=== PATIENT | female | born 1955 | race Hispanic/Latino ===

== ENCOUNTER → 2018-08-14 | Outpatient (CLI) | payer OTHER ==
[~2018-08-14] MED LIST: CARVEDILOL PO; LIPITOR PO; METFORMIN PO
--- NOTE | 2018-08-14 09:30 | Diagnostic Imaging Report ---
EXAM: Renal Ultrasound INDICATION: Recurrent UTI COMPARISON: None TECHNIQUE: Transverse and longitudinal images of the kidneys and bladder were obtained. FINDINGS: Right Kidney: Length: Measures 10.0 x 4.1 x 4.7 cm Appearance: Normal echogenicity. Collecting system: No hydronephrosis Stones: None Cyst/Mass: None Left Kidney: Length: Measures 10.9 x 4.5 x 4.5 cm Appearance: Normal echogenicity. Collecting system: No hydronephrosis There is a 4 mm hyperechoic focus seen within the left mid pole renal cortex. There is no associated shadowing. Bladder: Unremarkable in appearance. Bilateral ureteral jets are seen. IMPRESSION: Possible 4 mm left mid pole renal stone. No evidence of hydronephrosis. Signed by: Dr. Lorna Anderson MD on 08/14/2018 9:27 AM
== END ==
LOC: US 07:51
PROVIDERS: ATTEND Urology
DX: N39.0 Urinary tract infection, site not specified (principal)
CPT/HCPCS: 76770

== ENCOUNTER → 2018-09-03 | Outpatient (CLI) | payer OTHER ==
--- NOTE | 2018-09-03 11:50 | Diagnostic Imaging Report ---
EXAM: CT Abdomen and Pelvis WITHOUT contrast INDICATION: Kidney stone COMPARISON: Renal ultrasound, 08/14/2018; CT abdomen/pelvis, 10/21/2014 TECHNIQUE: Abdomen and pelvis were scanned utilizing a multidetector helical scanner from the lung base to the pubic symphysis without administration of IV contrast. Absence of intravenous contrast decreases sensitivity for detection of focal lesions and vascular pathology. Coronal and sagittal reformations were obtained. Renal stone protocol performed. Dose modulation, iterative reconstruction, and/or weight based adjustment of the mA/kV was utilized to reduce the radiation dose to as low as reasonably achievable. IV CONTRAST: None. ORAL CONTRAST: None RADIATION DOSE: Total DLP: 730.10 mGy*cm Estimated effective dose: (DLP x 0.015 x size factor) mSv COMPLICATIONS: None FINDINGS: LINES and TUBES: None. LOWER THORAX: Lung bases clear. Heart size normal. HEPATOBILIARY: No focal hepatic lesions. No biliary ductal dilation. GALLBLADDER: No radio-opaque stones or sludge. No wall thickening. SPLEEN: No splenomegaly. PANCREAS: No focal masses or ductal dilatation. ADRENALS: No adrenal nodules KIDNEYS/URETERS: No hydronephrosis. No cystic or solid mass lesions. No stones. GI TRACT: No abnormal distention, wall thickening, or evidence of bowel obstruction. There are diverticula throughout the colon with no CT evidence for acute diverticulitis. The appendix is not specifically visualized. PELVIC ORGANS/BLADDER: Urinary bladder unremarkable. The uterus is not visualized and may be absent or atrophic. LYMPH NODES: No lymphadenopathy. VESSELS: No abdominal aortic aneurysm. PERITONEUM / RETROPERITONEUM: No pneumoperitoneum or ascites. BONES: No acute or suspicious bony lesions. There is degenerative change with disc space narrowing at L4-5 and L5-S1. SOFT TISSUES: Superficial surrounding soft tissue unremarkable. IMPRESSION: 1. No urinary tract calculus or hydronephrosis. 2. Thomas colonic diverticulosis with no CT evidence for acute diverticulitis. Staff: Jeanine Signed by: Dr. Tono Solorzano M.D. on 09/03/2018 11:47 AM
== END ==
LOC: CT 09:42
PROVIDERS: ATTEND Urology
DX: N20.0 Calculus of kidney (principal)
CPT/HCPCS: 74176

== ENCOUNTER → 2019-09-23 | Outpatient (CLI) | payer OTHER ==
[~2019-09-23] MED LIST changes: +LIDOCAINE/PRILOCAINE 2.5-2.5% KIT ONE; +MINERAL OIL/PETROLAT/GLYCERI 6OZ BTL ONE
== END ==
LOC: WCC 13:47
PROVIDERS: ATTEND Podiatrist Foot & Ankle Surgery
DX: E11.622 Type 2 diabetes mellitus with other skin ulcer (principal); E11.69 Type 2 diabetes mellitus with other specified complication; E11.65 Type 2 diabetes mellitus with hyperglycemia; L97.311 Non-pressure chronic ulcer of right ankle limited to breakdown of skin; L97.321 Non-pressure chronic ulcer of left ankle limited to breakdown of skin; I87.2 Venous insufficiency (chronic) (peripheral); R60.9 Edema, unspecified; I10 Essential (primary) hypertension
CPT/HCPCS: 36415; 82948

== ENCOUNTER → 2019-10-10 | Outpatient (CLI) | payer OTHER ==
[~2019-10-10] MED LIST changes: -LIDOCAINE/PRILOCAINE 2.5-2.5% KIT ONE; -MINERAL OIL/PETROLAT/GLYCERI 6OZ BTL ONE
== END ==
LOC: WCC 08:27
PROVIDERS: ATTEND Family Medicine
DX: E11.622 Type 2 diabetes mellitus with other skin ulcer (principal); E11.69 Type 2 diabetes mellitus with other specified complication; E11.65 Type 2 diabetes mellitus with hyperglycemia; L97.321 Non-pressure chronic ulcer of left ankle limited to breakdown of skin; L97.311 Non-pressure chronic ulcer of right ankle limited to breakdown of skin; I87.2 Venous insufficiency (chronic) (peripheral); R60.9 Edema, unspecified; I10 Essential (primary) hypertension

== ENCOUNTER → 2019-10-14 | Outpatient (CLI) | payer OTHER | LOC: WCC 13:35 | PROVIDERS: ATTEND Podiatrist Foot & Ankle Surgery | DX: E11.622 Type 2 diabetes mellitus with other skin ulcer (principal); E11.69 Type 2 diabetes mellitus with other specified complication; E11.65 Type 2 diabetes mellitus with hyperglycemia; L97.321 Non-pressure chronic ulcer of left ankle limited to breakdown of skin; L97.311 Non-pressure chronic ulcer of right ankle limited to breakdown of skin; I87.2 Venous insufficiency (chronic) (peripheral); R60.9 Edema, unspecified; I10 Essential (primary) hypertension ==

== ENCOUNTER → 2019-10-17 | Outpatient (CLI) | payer OTHER ==
[~2019-10-17] MED LIST changes: +LIDOCAINE/PRILOCAINE 2.5-2.5% KIT ONE; +MINERAL OIL/PETROLAT/GLYCERI 2OZ CRM ONE; +MINERAL OIL/PETROLAT/GLYCERI 6OZ BTL ONE
== END ==
LOC: WCC 15:26
PROVIDERS: ATTEND Podiatrist Foot & Ankle Surgery
DX: E11.622 Type 2 diabetes mellitus with other skin ulcer (principal); E11.69 Type 2 diabetes mellitus with other specified complication; E11.65 Type 2 diabetes mellitus with hyperglycemia; L97.321 Non-pressure chronic ulcer of left ankle limited to breakdown of skin; L97.311 Non-pressure chronic ulcer of right ankle limited to breakdown of skin; R60.9 Edema, unspecified; I87.2 Venous insufficiency (chronic) (peripheral); I10 Essential (primary) hypertension
CPT/HCPCS: 36415; 82948

== ENCOUNTER → 2019-10-21 | Outpatient (CLI) | payer OTHER ==
[~2019-10-21] MED LIST changes: -LIDOCAINE/PRILOCAINE 2.5-2.5% KIT ONE; -MINERAL OIL/PETROLAT/GLYCERI 2OZ CRM ONE; -MINERAL OIL/PETROLAT/GLYCERI 6OZ BTL ONE
== END ==
LOC: WCC 15:07
PROVIDERS: ATTEND Podiatrist Foot & Ankle Surgery
DX: E11.622 Type 2 diabetes mellitus with other skin ulcer (principal); E11.69 Type 2 diabetes mellitus with other specified complication; E11.65 Type 2 diabetes mellitus with hyperglycemia; L97.321 Non-pressure chronic ulcer of left ankle limited to breakdown of skin; L97.311 Non-pressure chronic ulcer of right ankle limited to breakdown of skin; R60.9 Edema, unspecified; I87.2 Venous insufficiency (chronic) (peripheral); I10 Essential (primary) hypertension

== ENCOUNTER → 2019-10-24 | Outpatient (CLI) | payer OTHER | LOC: WCC 09:51 | PROVIDERS: ATTEND Podiatrist Foot & Ankle Surgery | DX: E11.622 Type 2 diabetes mellitus with other skin ulcer (principal); E11.69 Type 2 diabetes mellitus with other specified complication; E11.65 Type 2 diabetes mellitus with hyperglycemia; L97.311 Non-pressure chronic ulcer of right ankle limited to breakdown of skin; I87.2 Venous insufficiency (chronic) (peripheral); R60.9 Edema, unspecified; I10 Essential (primary) hypertension ==

== ENCOUNTER → 2019-10-28 | Outpatient (CLI) | payer OTHER | LOC: WCC 13:04 | PROVIDERS: ATTEND Podiatrist Foot & Ankle Surgery | DX: E11.622 Type 2 diabetes mellitus with other skin ulcer (principal); E11.69 Type 2 diabetes mellitus with other specified complication; E11.65 Type 2 diabetes mellitus with hyperglycemia; L97.311 Non-pressure chronic ulcer of right ankle limited to breakdown of skin; I87.2 Venous insufficiency (chronic) (peripheral); R60.9 Edema, unspecified; I10 Essential (primary) hypertension ==

== ENCOUNTER → 2019-10-31 | Outpatient (CLI) | payer OTHER | LOC: WCC 09:35 | PROVIDERS: ATTEND Podiatrist Foot & Ankle Surgery | DX: E11.69 Type 2 diabetes mellitus with other specified complication (principal); E11.65 Type 2 diabetes mellitus with hyperglycemia; R60.9 Edema, unspecified; I87.2 Venous insufficiency (chronic) (peripheral); I10 Essential (primary) hypertension ==

== ENCOUNTER → 2019-11-04 | Outpatient (CLI) | payer OTHER | LOC: WCC 14:25 | PROVIDERS: ATTEND Podiatrist Foot & Ankle Surgery | DX: E11.622 Type 2 diabetes mellitus with other skin ulcer (principal); E11.69 Type 2 diabetes mellitus with other specified complication; E11.65 Type 2 diabetes mellitus with hyperglycemia; L97.311 Non-pressure chronic ulcer of right ankle limited to breakdown of skin; I87.2 Venous insufficiency (chronic) (peripheral); R60.9 Edema, unspecified; I10 Essential (primary) hypertension ==

== ENCOUNTER → 2019-11-07 | Outpatient (CLI) | payer OTHER | LOC: WCC 09:59 | PROVIDERS: ATTEND Podiatrist Foot & Ankle Surgery | DX: E11.622 Type 2 diabetes mellitus with other skin ulcer (principal); E11.69 Type 2 diabetes mellitus with other specified complication; E11.65 Type 2 diabetes mellitus with hyperglycemia; L97.311 Non-pressure chronic ulcer of right ankle limited to breakdown of skin; I87.2 Venous insufficiency (chronic) (peripheral); R60.9 Edema, unspecified; I10 Essential (primary) hypertension ==

== ENCOUNTER → 2019-11-11 | Outpatient (CLI) | payer OTHER | LOC: WCC 14:36 | PROVIDERS: ATTEND Podiatrist Foot & Ankle Surgery | DX: E11.622 Type 2 diabetes mellitus with other skin ulcer (principal); E11.69 Type 2 diabetes mellitus with other specified complication; E11.65 Type 2 diabetes mellitus with hyperglycemia; L97.311 Non-pressure chronic ulcer of right ankle limited to breakdown of skin; I87.2 Venous insufficiency (chronic) (peripheral); R60.9 Edema, unspecified; I10 Essential (primary) hypertension ==

== ENCOUNTER → 2019-11-25 | Outpatient (CLI) | payer OTHER | LOC: WCC 14:13 | PROVIDERS: ATTEND Podiatrist Foot & Ankle Surgery | DX: E11.622 Type 2 diabetes mellitus with other skin ulcer (principal); E11.69 Type 2 diabetes mellitus with other specified complication; E11.65 Type 2 diabetes mellitus with hyperglycemia; L97.311 Non-pressure chronic ulcer of right ankle limited to breakdown of skin; I10 Essential (primary) hypertension; I87.2 Venous insufficiency (chronic) (peripheral); R60.9 Edema, unspecified | CPT/HCPCS: 36415; 82948 ==

== ENCOUNTER 2021-01-31 17:26 | Emergency (ER) | payer MEDICARE, OTHER ==
[~2021-01-31] VITALS: Ht 167.6 cm; Wt 72.6 kg
[2021-01-31] MEDS ORDERED: ONDANSETRON HCL INJ 2MG/ML 2ML 2 MG/ML VIAL IV STA (17:41)
[2021-01-31] MEDS ORDERED: DICYCLOMINE HCL 20 MG/2 ML VIAL IM ONE (17:45)
[2021-01-31 17:58] LABS: HEMOGLOBIN 13.2 g/dL (12.0-16.0); RED BLOOD COUNT 4.27 x10e6/uL (3.6-5.1)
[2021-01-31 17:59] LABS: BASOPHILS % 0.5 % (0.0-1.0); EOSINOPHILS # (AUTO) 0.1 (0.0-0.4); EOSINOPHILS % 0.7 % (0.0-6.0); HEMATOCRIT 39.1 % (34.2-44.1); LYMPHOCYTES % 23.5 % (18.0-39.1); MEAN CORPUSCULAR HEMOGLOBIN 30.9 pg (28-32); MEAN CORPUSCULAR HGB CONC 33.8 g/dL (31-35); MEAN CORPUSCULAR VOLUME 91.6 fL (81-99); MONOCYTES # (AUTO) 0.5 (0.2-0.8); MONOCYTES % 5.8 % (4.4-11.3); NEUTROPHILS # (AUTO) 5.8 (2.1-6.9); NEUTROPHILS % 69.3 % (38.7-80.0); PLATELET COUNT 242 x10e3/uL (140-360)
[2021-01-31 18:21] LABS: ALBUMIN/GLOBULIN RATIO 1.5 (0.8-2.0); ANION GAP 13.8 mmol/L (8-16); CALCIUM 9.6 mg/dL (8.4-10.2); CREATININE, SERUM 0.98 mg/dL (0.57-1.11); POTASSIUM 3.8 mmol/L (3.5-5.1)
[2021-01-31 18:51] LABS: AMYLASE 47 U/L (25-125); LIPASE 33 U/L (8-78)
[2021-01-31 21:16] VITALS: BP 118/68
== END 2021-01-31 21:19 | disposition home or self-care (01) ==
LOC: ER 17:51
DX: R10.11 Right upper quadrant pain (principal); R11.2 Nausea with vomiting, unspecified; I10 Essential (primary) hypertension
CPT/HCPCS: 36415; 76705; 80053; 82150; 83690; 85025; 99284; C9113; J0500; J2405

== ENCOUNTER 2022-02-27 19:49 | Emergency (ER) | payer MEDICARE ==
[~2022-02-27] VITALS: Ht 167.6 cm; Wt 70.3 kg
[2022-02-27] MEDS ORDERED: KETOROLAC TROMETHAMINE 30 MG/ML VIAL IM STA (20:27)
[2022-02-27] MEDS ORDERED: ONDANSETRON HCL 4 MG ORAL DISINTEGRATING TAB PO ONE (20:30)
[2022-02-27] MEDS ORDERED: KETOROLAC TROMETHAMINE 30 MG/ML VIAL ONE (20:42)
[2022-02-27] MEDS ORDERED: ONDANSETRON HCL 4 MG ORAL DISINTEGRATING TAB ONE (20:42)
[2022-02-27] MEDS ORDERED: TAMIFLU75 MG PO (21:33)
== END 2022-02-27 21:49 | disposition home or self-care (01) ==
LOC: ER 19:57
DX: H92.01 Otalgia, right ear (principal); J10.1 Influenza due to other identified influenza virus with other respiratory manifestations; R05.9 Cough, unspecified; R07.89 Other chest pain; R11.0 Nausea; I10 Essential (primary) hypertension; E11.9 Type 2 diabetes mellitus without complications; Z20.822 Contact with and (suspected) exposure to COVID-19
CPT/HCPCS: 99283; J1885; Q0162; U0002

== ENCOUNTER 2023-05-11 09:17 | Emergency (ER) | payer MEDICARE ==
[~2023-05-11] VITALS: Ht 167.6 cm; Wt 70.3 kg
[~2023-05-11 09:17] MED LIST changes: +GLIMEPIRIDE2 MG PO; +LINZESS290 MCG PO; +LOSARTAN-HCTZ1 EAC2 PO; +OZEMPIC0.25 MG/0. SC; +PROTONIX20 MG PO; +TAMIFLU75 MG PO; +VITAMIN B-121000 MCG PO; +VITAMIN D3 COM1 EACH PEG
[2023-05-11] MEDS ORDERED: ONDANSETRON HCL INJ 2MG/ML 2ML 2 MG/ML VIAL IV STA (09:39)
[2023-05-11] MEDS ORDERED: LACTATED RINGER'S 1,000 ML INJ ONE (09:45)
[2023-05-11 09:47] LABS: EOSINOPHILS # (AUTO) 0.1 (0.0-0.4); EOSINOPHILS % 0.9 % (0.0-6.0); HEMATOCRIT 37.7 % (34.2-44.1); HEMOGLOBIN 13.3 g/dL (12.0-16.0); LYMPHOCYTES # (AUTO) 0.4 (1.0-3.2); LYMPHOCYTES % 5.6 % (18.0-39.1); MEAN CORPUSCULAR HEMOGLOBIN 31.5 pg (28-32); MEAN CORPUSCULAR HGB CONC 35.3 g/dL (31-35); MEAN CORPUSCULAR VOLUME 89.3 fL (81-99); MONOCYTES # (AUTO) 0.4 (0.2-0.8); MONOCYTES % 5.2 % (4.4-11.3); NEUTROPHILS # (AUTO) 6.8 (2.1-6.9); PLATELET COUNT 187 x10e3/uL (140-360); RED BLOOD COUNT 4.22 x10e6/uL (3.6-5.1); RED CELL DISTRIBUTION WIDTH 13.2 % (11.7-14.4); WHITE BLOOD COUNT 7.74 x10e3/uL (4.8-10.8)
[2023-05-11 10:01] LABS: ALBUMIN 3.8 g/dL (3.5-5.0); ALBUMIN/GLOBULIN RATIO 1.4 (0.8-2.0); ANION GAP 14.8 mmol/L (8-16); CALCIUM 9.2 mg/dL (8.4-10.2); CREATININE, SERUM 1.11 mg/dL (0.57-1.11); POTASSIUM 3.8 mmol/L (3.5-5.1)
[2023-05-11 10:25] LABS: LIPASE 16 U/L (8-78)
[2023-05-11 10:27] LABS: CLARITY,URINE SL CLOUDY (CLEAR); COLOR,URINE YELLOW (YELLOW); KETONES,URINE NEGATIVE (NEGATIVE); LEUKOCYTE ESTERASE ,URINE MODERATE (NEGATIVE); NITRITE,URINE NEGATIVE (NEGATIVE); PROTEIN,URINE DIPSTICK NEGATIVE (NEGATIVE); URINE UROBILINOGEN 0.2 mg/dL (0.2 - 1)
[2023-05-11 10:49] LABS: BACTERIA,URINE FEW /HPF; EPITHELIAL CELLS,URINE FEW /LPF; WBC,URINE (MAN) >50 /HPF (0-5)
[2023-05-11] MEDS ORDERED: BACTRIM DS TAB1 EACH PO (11:43)
[2023-05-11] MEDS ORDERED: DICYCLOMINE HCL20 MG PO (11:44)
[2023-05-11] MEDS ORDERED: ONDANSETRON ODT4 MG PO (11:45)
[2023-05-11 12:21] VITALS: BP 136/72; PULSE 82; RESP 20; O2SAT 99
== END 2023-05-11 12:22 | disposition home or self-care (01) ==
LOC: ER 09:26
DX: R11.2 Nausea with vomiting, unspecified (principal); N39.0 Urinary tract infection, site not specified; E11.65 Type 2 diabetes mellitus with hyperglycemia; I10 Essential (primary) hypertension; K21.9 Gastro-esophageal reflux disease without esophagitis; Z20.822 Contact with and (suspected) exposure to COVID-19
CPT/HCPCS: 36415; 80053; 81001; 83690; 84484; 85025; 93005; 99284; J2405; J7121; U0002